=== PATIENT | male | born 1950 | race Caucasian/White ===

== ENCOUNTER 2020-11-18 08:25 | Outpatient (CLI) | payer MEDICARE, SELFPAY ==
--- NOTE | ~2020-11-18 | US_ITS ---
US abdomen complete EXAMINATION: US Abdomen Complete INDICATION: Trauma and pain. PROCEDURE: Realtime High Resolution abdomen ultrasound. COMPARISON: No prior studies for comparison FINDINGS: Gallbladder contains sludge. Common bile duct measures 3 mm. Liver echotexture within normal limits without focal mass. Pancreatic duct is mildly prominent measur ing 2.7 mm, although no pancreatic masses are identified.. Pancreatic tail is obscured by bowel gas. Spleen is unremarkeable. Renal echotexture is within normal limits bilaterally without hydronephros is, contour deforming mass or renal stone. Right kidney measures cm. Left kidney measures cm. Visualized aspects of the aorta and IVC are within normal limits. Portal vein is patent. No sonograph ic Stevenson's sign indicated by the technologist. IMPRESSION: 1: Gallbladder sludge. No definite stones. 2: Mildly prominent pancreatic duct measuring 2.7 mm, nonspecific. Reviewed, dictated and finalized at location A.
== END 2020-11-18 08:26 | disposition home or self-care (01) ==
LOC: ANHIMG 08:30
PROVIDERS: PCP Family Medicine; Visit Provider Physician Assistant
DX: Z87.891 Personal history of nicotine dependence (principal)
CPT/HCPCS: 76700

== ENCOUNTER → 2021-09-26 09:28 | Outpatient (CLI) | payer MEDICARE, SELFPAY ==
--- NOTE | ~2021-09-26 | XR_ITS ---
EXAMINATION: XR chest 2V DATE: 09/26/2021 09:48 INDICATION: Shortness of breath. Chest pain. TECHNIQUE: Frontal and lateral views of the chest were obtained. COMPARISON: Chest 2 views 01/19/2004 FINDINGS: A calcified right lung nodule and calcified right hilar lymph nodes are consistent with old granulomatous disease. No pleural effusion or pneumothorax. The heart size is normal. There are elec trodes in thoracic spine. There are changes of anterior and posterior fusion procedures in cervical s pine. There is mild chronic anterior wedging of multiple midthoracic vertebral bodies. IMPRESSION: 1. No acute cardiopulmonary disease. Reviewed, dictated and finalized at location A.
== END ==
PROVIDERS: PCP Family Medicine; Visit Provider Physician Assistant
DX: R06.02 Shortness of breath (principal)
CPT/HCPCS: 71046

== ENCOUNTER 2021-10-23 08:43 | Outpatient (CLI) | payer MEDICARE, SELFPAY ==
--- NOTE | 2021-10-23 08:53 | EST_ITS ---
Patient Info Name: Skinny Cheney Age: 71 years : 1950 Gender: Male Ht: 72 in Wt: 175 lbs BSA: 2.01 m2 HR: 78 bpm BP: 152 / 84 mmHg Heart Rhythm: Sinus Rhythm Exam Date: 10/23/2021 9:29 AM Exam Location: [facility] Patient Status: Outpatient Admit Date: 10/23/2021 Staff Ordering Physician: Brian Soto PA-C Shot Examiner: Elsy Alcazar RDCS Attending Provider: Brian Soto PA-C Exercise Technologist: Jacqui Patrick CT Exercise Physician: Avinash Hanson DO Exam Type: CA stress echo Study Info Treadmill exercise stress echocardiogram is performed. Summary 1. 1. Equivocal Bhavin exercise stress test for ischemic ST changes by ECG criteria. 2. 2. Reduced functional capacity, achieving 7 METs of workload. 3. 3. Baseline hypertension. 4. 4. Appropriate HR response to exercise. 5. 5. Appropriate HR recovery at 1 minute post exercise. 6. 6. Abnormal stress echocardiogram for ischemia with ischemia in right coronary artery distribution. 7. 7. Patient informed of the above results. Stress Echo Findings Left Ventricle Basal to mid inferior/posterior wall hypokinesis during systole. Left Ventricle Normal LV systolic function, no wall motion abnormality. Protocol: Bhavin Stress ECG Details Stage: REST Duration (min): 0 min : 54 sec Speed (mph): 0.0 Grade (%): 0 HR (bpm): 76 SBP (mmHg): 152 DBP (mmHg): 84 METS: --- Stage: REST Duration (min): 34 min : 49 sec Speed (mph): 0.0 Grade (%): 0 HR (bpm): 80 SBP (mmHg): 152 DBP (mmHg): 84 METS: --- Stage: STAGE 1 Duration (min): 1 min : 0 sec Speed (mph): 1.7 Grade (%): 10 HR (bpm): 102 SBP (mmHg): 152 DBP (mmHg): 84 METS: --- Stage: STAGE 1 Duration (min): 2 min : 0 sec Speed (mph): 1.7 Grade (%): 10 HR (bpm): 116 SBP (mmHg): 152 DBP (mmHg): 84 METS: --- Stage: STAGE 1 Duration (min): 3 min : 0 sec Speed (mph): 1.7 Grade (%): 10 HR (bpm): 116 SBP (mmHg): 174 DBP (mmHg): 86 METS: --- Stage: STAGE 2 Duration (min): 1 min : 0 sec Speed (mph): 2.5 Grade (%): 12 HR (bpm): 124 SBP (mmHg): 174 DBP (mmHg): 86 METS: --- Stage: STAGE 2 Duration (min): 2 min : 0 sec Speed (mph): 0.0 Grade (%): 0 HR (bpm): 132 SBP (mmHg): 184 DBP (mmHg): 88 METS: --- Stage: STAGE 2 Duration (min): 2 min : 1 sec Speed (mph): 0.0 Grade (%): 0 HR (bpm): 132 SBP (mmHg): 184 DBP (mmHg): 88 METS: --- Stage: RECOVERY Duration (min): 0 min : 58 sec Speed (mph): 0.0 Grade (%): 0 HR (bpm): 110 SBP (mmHg): 184 DBP (mmHg): 88 METS: --- Stage: RECOVERY Duration (min): 1 min : 58 sec Speed (mph): 0.0 Grade (%): 0 HR (bpm): 98 SBP (mmHg): 184 DBP (mmHg): 88 METS: --- Stage: RECOVERY Duration (min): 2 min : 58 sec Speed (mph): 0.0 Grade (%): 0 HR (bpm): 86 SBP (mmHg
== END 2021-10-23 08:44 | disposition home or self-care (01) ==
LOC: ANHCARD 08:44
PROVIDERS: PCP Family Medicine; Visit Provider Physician Assistant
DX: I10 Essential (primary) hypertension (principal)
CPT/HCPCS: 93351

== ENCOUNTER → 2022-05-20 09:29 | Outpatient (CLI) | payer MEDICARE, SELFPAY ==
--- NOTE | ~2022-05-20 | XR_ITS ---
Right foot Technique: AP, oblique, and lateral views were obtained. Clinical History: Fourth and fifth digit injury Findings: No acute fracture or dislocation is seen. Osseous alignment is anatomic. Joint spaces are p reserved without erosive or degenerative change. Soft tissues are unremarkable. Impression: Unremarkable right foot radiographs. Reviewed, dictated and finalized at [facility]. LE PROCESSING MACHINE OPERATOR Impression: Unremarkable right foot radiographs.
--- NOTE | ~2022-05-20 | XR_ITS ---
Left foot Technique: AP, oblique, and lateral views were obtained. Clinical History: Fourth and fifth digit injuries Findings: Questionable minimally impacted transverse fracture of the very proximal shaft of the fifth proximal phalanx. No other definite fracture identified. Joint spaces are preserved without erosive or degenerative change. Soft tissues are unremarkable. Impression: Questionable minimally impacted transverse fracture the proximal shaft of the fifth proximal phalanx. Correlate for point tenderness. Reviewed, dictated and finalized at location . AT SYSTEMS OPERATOR Impression: Questionable minimally impacted transverse fracture the proximal shaft of the f ifth proximal phalanx. Correlate for point tenderness.
== END ==
PROVIDERS: PCP Emergency Medicine; Visit Provider Emergency Medicine
DX: M79.674 Pain in right toe(s) (principal); M79.675 Pain in left toe(s)
CPT/HCPCS: 73630

== ENCOUNTER 2022-10-14 11:17 | Outpatient (NON) | payer MEDICARE, SELFPAY | END 2022-10-14 11:18 | disposition home or self-care (01) | LOC: ANHLAB 10-15 11:21 | PROVIDERS: PCP Emergency Medicine; Visit Provider Nurse Practitioner | DX: C44.719 Basal cell carcinoma of skin of left lower limb, including hip (principal) | CPT/HCPCS: 88305 ==

== ENCOUNTER 2022-11-05 09:00 | Outpatient (NON) | payer MEDICARE, SELFPAY | END 2022-11-05 09:01 | disposition home or self-care (01) | LOC: ANHLAB 11-10 09:36 | PROVIDERS: PCP Emergency Medicine; Visit Provider Nurse Practitioner | DX: C43.9 Malignant melanoma of skin, unspecified (principal) | CPT/HCPCS: 88305 ==

== ENCOUNTER 2023-01-27 11:59 | Outpatient (NON) | payer MEDICARE, SELFPAY | END 2023-01-27 12:00 | disposition home or self-care (01) | LOC: ANHLAB 01-28 12:04 | PROVIDERS: PCP Emergency Medicine; Visit Provider Nurse Practitioner | DX: L57.0 Actinic keratosis (principal) | CPT/HCPCS: 88305 ==

== ENCOUNTER 2025-02-21 09:07 | Outpatient (CLI) | payer MEDICARE, SELFPAY ==
--- NOTE | ~2025-02-21 | NM_ITS ---
EXAMINATION: NM grant stress w perfusion DATE: 02/21/2025 12:22 INDICATION: Chest pain. Other forms of dyspnea. TECHNIQUE: Rest images were obtained following intravenous administration of 10.0 mCi Tc99m tetrofosmin (Myoview). The patient was infused intravenously with Lexiscan (regadenoson). Then, 32.3 mCi Tc99m tetrofosmin (Myoview) was administered intravenously, and stress images were obtained. Data was patricia nstructed into short axis and horizontal and vertical long axis SPECT images. Gated SPECT images were also obtained. COMPARISON: None. FINDINGS: There is no definite reversible or fixed perfusion abnormality to suggest ischemia or infarction. There is no segmental wall motion abnormality. Left ventricular ejection fraction measures 66%. IMPRESSION: 1. No definite ischemia or infarct. 2. Normal left ventricular ejection fraction measuring 66%. Reviewed, dictated and finalized at location E.
--- OUTSIDE RECORDS SUMMARY | 2025-02-21 09:38 | XMS_ITS | Encounter Summary ---
Author Organization [facility] Address 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) Social History Tobacco Use Types Packs/Day Years Used Date Smoking Tobacco: Never Assessed Sex and Gender Information Value Date Recorded Sex Assigned at Male 07/20/2023 10:47 PM MEAT SELECTOR Legal Sex Male 4:24 AM MEAT SELECTOR Gender Identity Male 07/20/2023 10:47 PM MEAT SELECTOR Sexual Orientation Straight 07/20/2023 10 :47 PM MEAT SELECTOR documented as of this encounter Plan of Treatment Not on file documented as of this encounter Visit Diagnoses Diagnosis Displacement of cervical intervertebral disc without myelopathy- Primary documented in this encounter Care Teams Linderman Operator Relationship Specialty Start Date End Date Marshall Villatoro MD [address] [facility] [place] [address] PCP - General Family Practice 07/29/23 documented as of this encounter
--- OUTSIDE RECORDS SUMMARY | 2025-02-21 09:38 | XMS_ITS | Clinical Summary ---
Author Organization [facility] Address [address] [place] [address] Phone Care Team Providers Care Service Tech/Welder Name Role Phone Marshall Villatoro MD Primary Care Provider [phone] Allergies No known active allergies Medications pregabalin (LYRICA) 200 mg Capsule Take 200 mg by mouth every 12 hours. Active ALPRAZolam (Xanax) 0.5 mg tabletIndication s:Anxiety state Take 1 Tablet (0.5 mg) by mouth 3 times daily as needed for Anxiety. 5 Tablet 07/21/2022 Active baclofen (LIORESAL) 5 mg tablet Take 5 mg by mouth 3 times daily. 09/19/2022 Active HYDROcodone-acet aminophen (NORCO) 5-325 mg tablet TAKE 1 TABLET BY MOUTH 1 TO 2 TIMES DAILY NEEDED 09/02/2022 Active Active Problems Problem Noted Date Diagnosed Date Cervical stenosis of spine 12/14/2019 Spondylolisthesis of lumbar region 01/18/2019 Family History Medical History Relation Name Comments Healthy Father Marcelo Cheney 92 years old Healthy Mother Alethea Cheney 88 years old Relation Name Status Comments Father Marcelo Cheney Mother Alethea Cheney Social History Tobacco Use Types Packs/Day Years Used Date Smoking Tobacco: Former Cigarettes 0.5 15 1 - 05/24/2002 Smokeless Tobacco: Never Tobacco Cessation:Counseling Given: Not Answered Alcohol Use Standard Drinks/Week Comments Not Currently 0 (1 standard drink = 0.6 oz pur e alcohol) Sex and Gender Information Value Date Recorded Sex Assigned at Male 07/20/2023 10:47 PM ADMINISTRATIVE ASSISTANT DATA ENTRY Legal Sex Male 4:24 AM ADMINISTRATIVE ASSISTANT DATA ENTRY Gender Identity Male 07/20/2023 10:47 PM ADMINISTRATIVE ASSISTANT DATA ENTRY Sexual Orientation Straight 07/20/2023 10 :47 PM ADMINISTRATIVE ASSISTANT DATA ENTRY Last Filed Vital Signs Vital Sign Reading Time Taken Comments Blood Pressure 130/80 09/25/2022 9:09 AM CDT Pulse 67 09/25/2022 9:09 AM CDT Temperature 37 C (98.6 F) 09/25/2022 9:09 AM CDT Respiratory Rate 15 12/16/2019 7:56 AM CDT Oxygen Saturation 97% 09/25/2022 9:09 AM CDT Inhaled Oxygen Concentration - - Weight 76 kg (167 lb 8 oz) 09/25/2022 9:09 AM CD T Height 181.6 cm (5' 11.5) 09/25/2022 9:09 AM CD T Body Mass Index 23.04 09/25/2022 9:09 AM CDT Plan of Treatment Health Maintenance Due Date Last Done Comments DTAP/TDAP/TD VACCINES (1 - Tdap) 1970 COLORECTAL SCREENING 1996 Colorectal Cancer Screening 1996 FIT-DNA Q 3 years 1996 FIT/FOBT Q 1 year 1996 Flex Sig/CT Colonography Q 5 years 1996 PNEUMOCOCCAL VACCINE 50+ YEARS (1 of 1 - PCV) 07/14/19 02 ZOSTER VACCINE (1 of 2) 2001 INFLUENZA VACCINE (#1) 2024 RSV VACCINE (60+ or ) (1 - 1-dose 75+ series) 2026 Medical Devices Implanted Type Area Chaperon Device Identifier Shelf Expiration Date Model / Serial / Lot Eit Cellular Titanium Cage Implanted:Qty : 1 on 01/18/2019 by Celestine Arias MD at [facility] Cage N/A: Spine Lumbar J&J- [employer] [id number] 06/24/2023 [id number] / / [id number] Description:All Depuy spinal hardware was processed on requisition,[id number]. Hemostatic Surgiflo 8ml W/Thrombin 2994 - [id number] Implanted:Qty : 1 on 12/14/2019 by Celestine Arias MD at [facility] Hemostatic N/A: Spine Cervical Posterior J&J- [employer] 10/22/2020 2994 / / [id number] Neuro Stimulator Neuro Stimulator [employer] [id number] / / Description:Must bring remot e. Pt states whole body ONLY 30 mins of scan time. NO ILYA or COIL restrictions Pt must bring remote to appt to turn into MRI scan as well.--jaylen 07/09/22 Rob Xpdm Crv W/Line 40mm [id number] - [id number] Implanted:Qty : 2 on 01/18/2019 by Celestine Arias MD at [facility] Rob N/A: Spine Lumbar J&J- [employer] Description:All Depuy spinal hardware was processed on requisition,[id number]. Rob Symphony Ti Lrdct 85x4mm [id number] - Sload 1 3 Implanted:Qty : 2 on 12/14/2019 by Celestine Arias MD at [facility] Rob N/A: Spine Cervical Posterior SYNTHES-STRATEC- SPINAL [id number] / LOAD 1 3 / STERILIZED 11/02/2019 Setscrew Inner - [id number] Implanted:Qty : 4 on 01/18/2019 by Celestine Arias MD at [facility] Screw N/A: Spine Lumbar J&J- [employer] Screw Exp Poly 7x45mm - [id number] Implanted:Qty : 4 on 01/18/2019 by Celestine Arias MD at [facility] Screw N/A: Spine Lumbar J&J- [employer] 5 Screw Poly 14x3.5mm 4mm Symphony [id number] - Sload 1 3 Implanted:Qty : 6 on 12/14/2019 by Celestine Arias MD at [facility] Screw N/A: Spine Cervical Posterior SYNTHES-STRATEC- SPINAL [id number] / LOAD 1 3 / STERILIZED 11/02/2019 Screw Kyle Pdcl Poly 26x4.5mm 4mm Symphony [id number] - Sload 1 3 Implanted:Qty : 2 on 12/14/2019 by Celestine Arias MD at [facility] Screw N/A: Spine Cervical Posterior SYNTHES-STRATEC- SPINAL [id number] / LOAD 1 3 / STERILIZED 11/02/2019 Screw Poly 20x4mm 4mm Symphony [id number] - Sload 1 3 Implanted:Qty : 2 on 12/14/2019 by Celestine Arias MD at [facility] Screw N/A: Spine Cervical Posterior SYNTHES-STRATEC- SPINAL [id number] / LOAD 1 3 / STERILIZED 11/02/2019 Description:All Spinal hardw are was processed on requisition # [id number] Putty Dbx [facility] 29857 - [id number] Implanted:Qty : 1 on 01/18/2019 by Celestine Arias MD at [facility] Tissue N/A: Spine Lumbar MUSCULOSKELETAL TRANSPLANT FOU 09/01/2020 [id number] / [id number] / Depuy Symphoney Set Screw Implanted:Qty : 10 on 12/14/2019 by Celestine Arias MD at [facility] N/A: Spine Cervical Posterior J&J- [employer] [id number] / LOAD 1 3 / STERILIZED 11/02/2019 Insurance MEDICARE PART A AND B [facility] [id number] [place] [id number] Advance Directives For more information, please contact: [phone] * Full Code (Latest Code Status on File) Date Activated Date Inactivated Comments 12/14/2019 5:48 AM 12/16/2019 12:05 PM * Full Code Date Activated Date Inactivated Comments 01/18/2019 11:50 AM 01/21/2019 2:27 PM * Full Code Date Activated Date Inactivated Comments 01/18/2019 9:10 AM 01/18/2019 11:50 AM * Full Code Date Activated Date Inactivated Comments 01/18/2019 5:32 AM 01/18/2019 9:10 AM Care Teams Service Tech/Welder Relationship Specialty Start Date End Date Marshall Villatoro MD [address] [facility] [place] [id number] PCP - General Family Practice 07/29/23
--- OUTSIDE RECORDS SUMMARY | 2025-02-21 09:38 | XMS_ITS | Encounter Summary ---
Author Organization [facility] Address [address] [place] [address] Care Team Providers Care Waiter/Waitress Economy Class Name Role Phone Marshall Villatoro MD Primary Care Provider [phone] Encounter Details Date Type Department Care Team (Latest Contact Info) Description 11/16/2003 Outpatient Historical [facility] Gerald Paul MD BackerBen MD NO ADDRESS ON FILE CERVICAL SPONDYLOSIS (Primary Dx) Social History Tobacco Use Types Packs/Day Years Used Date Smoking Tobacco: Never Assessed Sex and Gender Information Value Date Recorded Sex Assigned at Male 07/20/2023 10:47 PM CONTINUOUS IMPROVEMENT SPECIALIST Legal Sex Male 4:24 AM CONTINUOUS IMPROVEMENT SPECIALIST Gender Identity Male 07/20/2023 10:47 PM CONTINUOUS IMPROVEMENT SPECIALIST Sexual Orientation Straight 07/20/2023 10 :47 PM CONTINUOUS IMPROVEMENT SPECIALIST documented as of this encounter Plan of Treatment Not on file documented as of this encounter Visit Diagnoses Diagnosis Cervical spondylosis without myelopathy- Primary documented in this encounter Care Teams Waiter/Waitress Economy Class Relationship Specialty Start Date End Date Marshall Villatoro MD [address] [facility] [place] [address] PCP - General Family Practice 07/29/23 documented as of this encounter
--- OUTSIDE RECORDS SUMMARY | 2025-02-21 09:38 | XMS_ITS | Clinical Summary ---
Author Organization [facility] Address [address], [facility] [address] [place] [address] Phone Care Team Providers Care Probation Agent Name Role Phone Marshall Villatoro MD Primary Care Provider [phone] Julian Henson MD Unavailable [phone] Julio César Nieves MD Unavailable [phone] Allergies No known active allergies Medications HYDROcodone-stephany taminophen (NORCO) 5-325 MG Tablet TAKE 1 TABLET BY MOUTH 1-2 TIMES A DAY NEEDED FOR 30 DAYS 09/02/2022 Active nitroGLYCERIN (NITROSTAT) 0.4 MG SL Tablet DISSOLVE 1 TABLET UNDER THE TONGUE EVERY 5 MINUTES NEEDED FOR CHEST PAIN. DO NOT EXCEED 3 DOSES PER EPISODE. 04/22/2024 Active DULoxetine (CYMBALTA) [address] Particles 06/01/2024 Active pregabalin (LYRICA) 100 MG Capsule 11/03/2024 Active DULoxetine (CYMBALTA) [address] Particles Take 30 mg by mouth daily. 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 0711/30/2024 Travel 11/23/2024 9:15 AM CDT Lab [facility] [address] [phone] Lab, Kathryn Bella Low serum immunoglobulin kappa light chain 11/23/2024 Travel from Last 3 Months Immunizations Immunization Administration Dates Next Due Influenza, High-dose, Quadrivalent 01/14/2022 Influenza, Quadrivalent, Adjuvanted 02/14/2023 Influenza, Recombinant, Quadrivalent,injectable, Pf 03/14/2021,05/21/2020 Pneumococcal Vaccine Adult - 23 Valent 0 Family History Medical History Relation Name Comments Hypertension Father Chronic Obstructive Pulmonary Disease Mother Relation Name Status Comments Brother 1 Alive Brother 2 Alive Child 1 Alive Child 2 Alive Father Mother Alive Sister 1 Alive Sister 2 Alive Sister 3 Alive Social History Tobacco Use Types Packs/Day Years Used Date Smoking Tobacco: Former Cigarettes Smokeless Tobacco: Never Tobacco Cessation:Counseling Given: Not Answered Alcohol Use Standard Drinks/Week Comments Never 0 (1 standard drink = 0.6 oz pur e alcohol) Sex and Gender Information Value Date Recorded Sex Assigned at Not on file Legal Sex Male 8:57 AM CDT Gender Identity Not on file Sexual Orientation Not on file Last Filed Vital Signs Vital Sign Reading Time Taken Comments Blood Pressure 128/70 11/30/2024 8:24 AM CDT Pulse 88 11/30/2024 8:24 AM CDT Temperature 37.1 C (98.7 F) 11/30/2024 8:24 AM CDT Respiratory Rate 20 11/30/2024 8:24 AM CDT Oxygen Saturation 96% 11/30/2024 8:24 AM CDT Inhaled Oxygen Concentration - - Weight 72.5 kg (159 lb 14.4 oz) 11/30/2024 8:24 AM CDT Height 182.9 cm (6') 11/30/2024 8:24 AM CDT Body Mass Index 21.69 11/30/2024 8:24 AM CDT Plan of Treatment Upcoming Encounters Date Type Department Care Team (Late st Contact Info) Description 05/26/2025 8:30 AM SOLAR INSTALLATION SUPERVISOR Lab [facility] [address] [phone] Lab, Kathryn Bella [place] 05/31/2025 8:15 AM SOLAR INSTALLATION SUPERVISOR Office Visit [facility] [address] [phone] Julio César Nieves MD [address] [place] [phone] Health Maintenance Due Date Last Done Comments Hepatitis C Virus (HCV) Screening 1950 TdaP Immunization 1950 Zoster Immunization (1 of 2) 1970 Cologuard 1996 Colonoscopy 1996 Colorectal Cancer Screening 1996 Immunochemical Fecal Occult Blood 1996 Respiratory Syncytial Virus (RSV) Immunization (Adult) (1 - Risk 60-74 years 1-dose series) 2011 AAA Screening Ultrasound 2016 Pneumococcal Immunization (50+ years) (2 of 2 - PCV) 06/20/2020 06/20/2019 Influenza Immunization (#1) 2025 09/2 07/2022, 01/14/2022, 03/14/2021, Additional history exists SARS-COV-2 Immunization ( season) 2025 02/14/2023, 04/25/2021, 08/13/2020, Additional history exists Hepatitis B Immunization Aged Out No longer eligible based on patient's age to complete this topic Human Papillomavirus (HPV) Immunization Aged Out No longer eligible based on patient's age to complete this topic Meningococcal Immunization (ACWY) Aged Out No longer eligible based on patient's age to complete this topic Rotavirus Immunization Aged Out No lo nger eligible based on patient's age to complete this topic Procedures Procedure Name Priority Date/Time Associated Diagnosis Comments CBC WITH AUTO DIFF OH Routine 11/23/2024 8:25 AM CDT CMP (COMPREHENSIVE METABOLIC PANEL) Routine 11/23/2024 8:25 AM CDT Low serum immunoglobulin kappa light chain IMMUNOGLOBULIN IGA, IGG & IGM QUANT Routine 11/23/2024 8:25 AM CDT Low serum immunoglobulin kappa light chain ELECTROPHORESIS W/ TOTAL PROTEIN SERUM Routine 11/23/2024 8:25 AM CDT Low serum immunoglobulin kappa light chain IMMUNOFIXATION, SERUM OH Routine 11/23/2024 8:25 AM CDT Low serum immunoglobulin kappa light chain SERUM FREE LIGHT CHAINS, OH Routine 11/23/2024 8:25 AM CDT Low serum immunoglobulin kappa light chain from Last 3 Months Results * SERUM FREE LIGHT CHAINS, [place] (11/23/2024 8:25 AM CDT) FREE KAPPA LT CHAINS 20.5 2.9 - 20.7 mg/L [facility] FREE LAMBDA LT CHAINS 15.0 4.2 - 27.6 mg/L [facility] KAPPA/LAMBDA RATIO 1.37 0.22 - 1.74 [facility] Blood 11/23/2024 8:25 AM CDT Narrative [facility] - 11/23/2024 2:18 PM CDT Release to patient->Immediate Laurel Pina APRN, SAND CONTROL WORKER LAB SEND OUTS Final Result [facility] [place] [address], * IMMUNOFIXATION, SERUM [place] (11/23/2024 8:25 AM CDT) IMMUNOFIXATION RESULT, SERUM COMMENT [facility] Comment:NO MONOCLONALITY DET ECTED. 11/23/2024 8:25 AM CDT [facility] - 11/25/2024 3:08 PM CDT TESTING PERFORMED AT: [] [facility], [address] [place] [address], [place], [address], PHONE: [phone], EMBROIDERY DESIGNER: BELINDA FERNANDO, PHD Release to patient->Immediate Laurel Pina BLACKSMITH SUPERVISOR, SAND CONTROL WORKER LAB SEND OUTS Final Result [facility] [place] [address], * (ABNORMAL) CBC WITH AUTO DIFF OH (11/23/2024 8:25 AM CDT) WBC 7.9 4.0 - 10.0 10*3/uL [facility] HGB 14.1 13.7 - 17.5 g/dL [facility] HCT 43.3 40.1 - 51.0 % [facility] PLT 373(H) 163 - 369 10*3/uL [facility] MPV 10.2 9.4 - 12.4 fL [facility] RBC 4.77 4.63 - 6.08 10*6/uL [facility] MCV 91 79 - 95 fL [facility] MCH 29.6 25.6 - 32.2 pg [facility] MCHC 32.6 32.2 - 36.5 g/dL [facility] RDW 14.7(H) 11.6 - 14.4 % [facility] Neutrophils % 54.8 36.0 - 66.0 % [facility] Lymphocytes % 25.4 19.0 - 40.0 % [facility] Monocytes % 11.4 4.1 - 12.1 % [facility] Eosinophils % 7.5(H) 0.0 - 3.5 % [facility] Basophils % 0.6 0.0 - 1.0 % [facility] Absolute Neutrophils 4.3 1.4 - 6.6 10*3/uL [facility] Absolute Lymphocytes 2.0 0.8 - 4.0 10*3/uL [facility] Absolute Monocytes 0.9 0.2 - 1.2 10*3/uL [facility] Absolute Eosinophils 0.6(H) 0.0 - 0.4 10*3/uL [facility] Absolute Basophils 0.1 0.0 - 0.1 10*3/uL [facility] 11/23/2024 8:25 AM CDT Laurel Pina APRN, SAND CONTROL WORKER LAB SEND OUTS Final Result [facility]ENIOR ENERGY TRAD[facility] [place] [address], [place] [phone] * (ABNORMAL) IMMUNOGLOBULIN IGA, IGG & IGM QUANT (11/23/2024 8:25 AM CDT) IGG 698 635 - 1,741 mg/dL [facility] IGA 135 66 - 433 mg/dL [facility] IGM 33(L) 45 - 281 mg/dL [facility] Blood 11/23/2024 8:25 AM CDT Narrative [facility] - 11/23/2024 2:18 PM CDT Release to patient->Immediate Laurel Pina APRN, SAND CONTROL WORKER CHEMISTRY ORDERABLES Final Result Performing Organization Address City/[facility]/ZIP Co de Phone Number [facility] [place] [address], [place] [phone] * ELECTROPHORESIS W/ TOTAL PROTEIN SERUM (11/23/2024 8:25 AM CDT) PROTEIN, TOTAL, SERUM 6.6 6.0 - 8.5 G/DL [facility] ALBUMIN 3.8 2.9 - 4.4 G/DL [facility] [id number] 0.3 0.0 - 0.4 G/DL [facility] [id number] 0.8 0.4 - 1.0 G/DL [facility] BETA GLOBULIN 1.0 0.7 - 1.3 G/DL [facility] GAMMA GLOBULIN 0.7 0.4 - 1.8 G/DL [facility] M-SPIKE NOT OBSERVED NOT OBSERVED G/DL [facility] GLOBULIN, TOTAL 2.8 2.2 - 3.9 G/DL [facility] A/G RATIO 1.4 0.7 - 1.7 [facility] TER SPECIALISTS [facility] PLEASE NOTE: COMMENT [facility] Comment: PROTEIN ELECTROPHORESIS SCAN WILL FOLLOW VIA COMPUTER, MAIL, OR CATERER'S AIDE DELIVERY. PDF . [facility] Blood 11/23/2024 8:25 AM CDT Narrative [facility] - 11/24/2024 8:18 PM CDT TESTING PERFORMED AT: [] [facility], [address] [place] [address], [place], [address], PHONE: [phone], EMBROIDERY DESIGNER: BELINDA FERNANDO, PHD Release to patient->Immediate Laurel Pina APRN, SAND CONTROL WORKER CHEMISTRY ORDERABLES Final Result [facility] [place] [address], * (ABNORMAL) CMP (COMPREHENSIVE METABOLIC PANEL) (11/23/2024 8:25 AM CDT) Glucose 118(H) 70 - 105 mg/dL [facility] Blood Urea Nitrogen 15 7 - 25 mg/dL [facility] Creatinine 1.0 0.7 - 1.3 mg/dL [facility] Sodium 139 136 - 145 mEq/L [facility] Potassium 5.0 3.5 - 5.1 mEq/L [facility] Chloride 100 98 - 107 mEq/L [facility] Bicarbonate 32(H) 21 - 31 mEq/L [facility] Total Bilirubin 0.5 0.3 - 1.0 mg/dL [facility] Alk. Phosphatase 82 34 - 104 U/L [facility] Aspartate Aminotransferase 25 13 - 39 U/L [facility] Alanine Aminotransferase 16 7 - 52 U/L [facility] Total Protein 6.7 6.4 - 8.9 g/dL [facility] Albumin 4.7 3.5 - 5.7 g/dL [facility] Calcium 10.0 8.6 - 10.3 mg/dL [facility] Anion Gap 12.0 7.0 - 15.0 mEq/L [facility] Globulin 2.0 2.0 - 3.5 g/dL [facility] EGFR 79 >60 ml/min/1. 73m2 [facility] Comment: This eGFR is calculated using 2020 CKD-EPI Creatinine equation without race modifier based on the NKF-ASN task force recommendations Equation: hFML=392*min(SCr/k,1)a*max(SCr/k,1)-1.200*0.9938Age*1.012 (if female), where SCr is serum creatinine, k is 0.7 for females and 0.9 for males, and a is -0.241 for females and -0.302 for males Blood 11/23/2024 8:25 AM CDT Narrative [facility] - 11/23/2024 9:12 AM CDT Release to patient->Immediate IS THE PATIENT REQUIRED TO BE FASTING FOR 8 HOURS?->No Laurel Pina APRN, SAND CONTROL WORKER CHEMISTRY ORDERABLES Final Result [facility] [place] [address], from Last 3 Months Insurance MEDICARE [facility] Care Teams Probation Agent Relationship Specialty Start Date End Date Marshall Villatoro MD [address] [address] PCP - General Family Medicine 10/26/23 Julian Henson MD [address] [address] Neuromuscular Medicine 10/26/23 Julio César Nieves MD [address] [place] [phone] Consulting Physician Oncology 10/26/23
--- NOTE | 2025-02-21 09:56 | EST_ITS ---
Patient Info Name: Skinny Cheney Age: 74 years : 1950 Gender: Male Ht: 72 in Wt: 164 lbs BSA: 1.94 m2 HR: 61 bpm BP: 145 / 88 mmHg Exam Date: 02/21/2025 9:56 AM Patient Status: O Admit Date: 02/21/2025 Exam Type: CA stress grant w NM A regadenoson stress test was performed. Staff Referring Physician: Rosa IBARRA Attending Provider: Rosa IBARRA Exercise Technologist: Citlaly Nieves Exercise Physician: Avinash Hanson DO Summary 1. 1. Negative lexiscan stress test for ischemic ST changes by ECG criteria. 2. 2. Baseline hypertension. 3. 3. Nuclear scan to follow and will be reported separately. Please correlate with it. 4. 4. Patient informed of the above results. Protocol: Lexiscan Stress ECG Details Stage: REST Duration (min): 1 min : 23 sec HR (bpm): 64 SBP (mmHg): 145 DBP (mmHg): 88 Stage: REST Duration (min): 14 min : 10 sec HR (bpm): 70 SBP (mmHg): 145 DBP (mmHg): 88 Stage: STAGE 1 Duration (min): 1 min : 0 sec HR (bpm): 83 SBP (mmHg): 158 DBP (mmHg): 87 Stage: RECOVERY Duration (min): 1 min : 0 sec HR (bpm): 104 SBP (mmHg): 158 DBP (mmHg): 87 Stage: RECOVERY Duration (min): 2 min : 0 sec HR (bpm): 98 SBP (mmHg): 158 DBP (mmHg): 87 Stage: RECOVERY Duration (min): 3 min : 0 sec HR (bpm): 98 SBP (mmHg): 157 DBP (mmHg): 83 Stage: RECOVERY Duration (min): 3 min : 8 sec HR (bpm): 97 SBP (mmHg): 157 DBP (mmHg): 83 Rest HR: 70 bpm Peak HR: 104 bpm Rest Sys BP: 145 mmHg Peak Sys BP: 158 mmHg Max Pred HR: 147 bpm % Max Pred HR: 71 % Target HR: 125 bpm Max RPP: 16,432 bpm*mmHg Termination Reason: Completed protocol Cardiac Symptoms: Shortness of breath Total Time: 1 min : 0 sec Rest Smith BP: 88 mmHg Peak Smith BP: 87 mmHg Total Dose: 0.4 mg Resting ECG Sinus rhythm. Stress ECG No ST changes. Arrhythmias None. Report Signatures
--- NOTE | 2025-02-21 10:08 | ECHO_ITS ---
Patient Info Name: Skinny Cheney Age: 74 years : 1950 Gender: Male Ht: 72 in Wt: 165 lbs BSA: 1.95 m2 HR: 67 bpm BP: 137 / 82 mmHg Technical Quality: Good Exam Date: 02/21/2025 10:28 AM Patient Status: O Admit Date: 02/21/2025 Exam Type: CA echo doppler color flow Complete two-dimensional, color flow and Doppler transthoracic echocardiogram is performed. Staff Referring Physician: Rosa IBARRA Stretching Machine Tender Frame: Perez Khoury III Attending Provider: Rosa FAJARDOP Summary 1. Complete two-dimensional, color flow and Doppler transthoracic echocardiogram is performed. 2. Left ventricular chamber dimension is normal. 3. Left ventricular systolic function is normal, estimated at 65-70. 4. The left ventricular diastolic function is normal. 5. E/e' 5 is not elevated. 6. There is mild aortic valve sclerosis. 7. There is trace mitral valve regurgitation. 8. There is trace tricuspid valve regurgitation. 9. No pulmonary hypertension, estimated pulmonary arterial systolic pressure is 27 mmHg. Left Ventricle E/e' 5 is not elevated. Left ventricular chamber dimension is normal. Left ventricular systolic function is normal, estimated at 65-70. The left ventricular diastolic function is normal. Right Ventricle Right ventricular chamber dimension is normal. Right ventricular systolic function is normal and with normal TAPSE 2.7 cm. Left Atria Left atrial chamber dimension is normal. Right Atria Right atrial chamber dimension is normal. Aortic Valve The aortic valve is trileaflet. There is mild aortic valve sclerosis. There is no aortic valve stenosis. There is no aortic valve regurgitation. Pulmonic Valve There is no pulmonic regurgitation. Mitral Valve There is no mitral valve stenosis. There is trace mitral valve regurgitation. Tricuspid Valve There is trace tricuspid valve regurgitation. No pulmonary hypertension, estimated pulmonary arterial systolic pressure is 27 mmHg. Pericardium/Pleural There is no pericardial effusion. Inferior Vena Cava Normal inferior vena cava with >50% collapse upon inspiration consistent with normal right atrial pressure, 5 mmHg. Aorta The aortic root size at the sinus of Valsalva is normal. Left Ventricular Outflow Tract Name Value Normal LVOT 2D LVOT Diameter 2.3 cm LVOT Doppler LVOT Peak Velocity 82 cm/s LVOT Peak Gradient 3 mmHg LVOT Mean Gradient 1 mmHg LVOT VTI 20 cm LVOT VTI/AV VTI Ratio 0.9 LVOT Stroke Volume 85 ml LVOT CO 4.6 l/min LVOT CI 2.3 l/min/m2 Pulmonic Valve Name Value Normal PV Doppler PV Peak Velocity 81 cm/s PV Peak Gradient 3 mmHg PV Mean Gradient 1 mmHg Mitral Valve Name Value Normal MV Doppler MV Peak Gradient 2 mmHg MV Mean Gradient 1 mmHg MV Area (Cont Eq VTI) 5.4 cm2 MV Diastolic Function MV E Peak Velocity 58 cm/s MV A Peak Velocity 57 cm/s MV E/A 1.0 MV Decel Time (PW) 279 ms MV Annular TDI MV E/e' (Septal) 6.8 MV E/e' (Lateral) 4.5 MV E/e' (Average) 5.6 Tricuspid Valve Name Value Normal TV Regurgitation Doppler TR Peak Velocity 232 cm/s TR Peak Gradient 22 mmHg Estimated PAP/RSVP RA Pressure 5 mmHg <=5 PA Systolic Pressure 27 mmHg <36 RV Systolic Pressure 27 mmHg <36 TV Annular TDI TV Lateral Estephanie s' Velocity 13.8 cm/s >=9.5 Aortic Valve Name Value Normal AV Doppler AV Peak Velocity 99 cm/s AV Peak Gradient 4 mmHg AV Mean Gradient 2 mmHg AV VTI 22 cm AV Area (Cont Eq VTI) 3.8 cm2 >=3.0 AV Area (Cont Eq Jaylen) 3.5 cm2 AV DI (Jaylen) 0.83 AV Regurgitation 2D LVOT Area 4.3 cm2 Ventricles Name Value Normal LV Dimensions 2D/MM IVS Diastolic Thickness (2D) 1.0 cm 0.6-1.0 LVID Diastole (2D) 4.1 cm 4.2-5.8 LVIW Diastolic Thickness (2D) 0.8 cm 0.6-1.0 LVID Systole (2D) 2.9 cm 2.5-4.0 LVOT Diameter 2.3 cm LV Mass (2D Cubed) 118.30 g 88.00-224.00 LV Mass Index (2D Cubed) 61 g/m2 49-115 Relative Wall Thickness (2D) 0.41 <=0.42 LV Fractional Shortening/Ejection Fraction 2D/MM LV Fractional Shortening (2D) 30 % 25-43 LV EF (2D Teichholz) 58 % LV Diastolic Volume (4C MOD) 94 ml LV EF (4C MOD) 58 % LV Diastolic Volume (2C MOD) 104 ml LV EF (2C MOD) 58 % LV Diastolic Volume (BP MOD) 99 ml 62-150 LV Diastolic Volume Index (BP MOD) 51 ml/m2 34-74 LV Systolic Volume (BP MOD) 42 ml 21-61 LV Systolic Volume Index (BP MOD) 21 ml/m2 11-31 LV EF (BP MOD) 58 % 52-72 LV Diastolic Length (4C) 7.8 cm LV Systolic Length (4C) 6.2 cm LV Stroke Volume (4C MOD) 54 ml Atria Name Value Normal LA Dimensions LA Volume (4C A-L) 52 ml LA Volume (BP A-L) 57 ml RA Dimensions RA Systolic Major Hadley Length (4C) 6.2 cm 2.1-2.7 RA Area (4C) 18.6 cm2 <=18.0 Report Signatures
== END 2025-02-21 09:08 | disposition home or self-care (01) ==
LOC: ANHCARD 09:09
PROVIDERS: PCP Clinical Nurse Specialist; Visit Provider Clinical Nurse Specialist
DX: R06.09 Other forms of dyspnea (principal); I35.8 Other nonrheumatic aortic valve disorders; I08.1 Rheumatic disorders of both mitral and tricuspid valves
CPT/HCPCS: 78452; 93017; 93306; A9502; J2785